=== PATIENT | male | born 1970 | race Caucasian/White ===

== ENCOUNTER 2025-08-06 12:49 | Outpatient (CLI) | payer BC | END 2025-08-06 12:50 | disposition home or self-care (01) | LOC: MRI 12:49 | PROVIDERS: ATTEND Nurse Practitioner Family | DX: M25.362 Other instability, left knee (principal); M25.562 Pain in left knee; S83.512A Sprain of anterior cruciate ligament of left knee, initial encounter; S83.242A Other tear of medial meniscus, current injury, left knee, initial encounter ==